=== PATIENT | female | born 1940 | race Caucasian/White ===

== ENCOUNTER 2016-11-14 04:37 | Observation (INO) | payer OTHER ==
[~2016-11-14] VITALS: Ht 165.1 cm; Wt 81.4 kg
[~2016-11-14 04:37] MED LIST: ASPIR 8181 M1 PO; ASPIR-LOW81 MG PO; AZATHIOPRINE50 MG PO; CAL-CITRATE PL1 EACH PO; CALTRATE 600 +1 EAC1 PO; ELIQUIS5 MG PO; LEVOTHYROXINE75 MCG PO; LIPITOR80 MG PO; METAMUCIL POWD798 GM PO; METOPROLOL TART25 MG PO; MOVE IT ALONG100 MG PO; PRAVASTATIN SOD40 MG PO; PROLIA60 MG/1 ML SC; PULMICORT FLE180 MCG IH; VENTOLIN HFA18 GM IH
[2016-11-14 04:59] LABS: HEMATOCRIT 40.5 % (36.0-46.0); MCH 31.9 PG (29.0-34.0); MCHC 33.6 G/DL (30.0-36.0); MCV 94.8 FL (83-99); MEAN PLAT.VOLUME 10.6 uM^3 (9.5-12.4); PLATELET COUNT 220 K/uL (156-360); RBC DIS.WIDTH-CV 13.7 % (11.8-14.6); RBC DIS.WIDTH-SD 45.2 % (39-53); RED BLOOD COUNT 4.27 M/uL (3.80-5.20); WHITE BLOOD COUNT 6.6 K/uL (4.1-10.2)
[2016-11-14 05:06] LABS: CHLORIDE 102 mEq/L (99-109); POTASSIUM 4.5 mEq/L (3.7-5.4); SODIUM 138 mEq/L (136-147)
[2016-11-14 05:08] LABS: GLUCOSE 120 mg/dL (70-99)
[2016-11-14 05:09] LABS: ANION GAP 8 MEQ/L (2-14)
[2016-11-14 05:12] LABS: GFR ESTIMATE (CALCULATED) 57 mL/min/
[2016-11-14 05:13] LABS: UREA NITROGEN (BUN) 18 mg/dL (9-23)
[2016-11-14 05:15] LABS: TOTAL BILIRUBIN 0.3 mg/dL (0.0-1.0)
[2016-11-14 05:16] LABS: ALKALINE PHOSPHATASE 66 IU/L (3-129)
[2016-11-14 05:18] LABS: TROP-I INTERPRETATION NEGATIVE; TROPONIN-I 0.01 ng/mL (0.0-0.30)
[2016-11-14 05:19] LABS: DIRECT BILIRUBIN 0.1 mg/dL (0.0-0.3)
[2016-11-14 05:20] LABS: LIPASE 56 U/L (1.0-51.0)
[2016-11-14 05:31] LABS: PROTHROMBIN TIME 10.4 (9.2-11.2); PTT 30.1 (25-32)
[2016-11-14] MEDS ORDERED: CARTIA XT120 MG PO (06:36)
[2016-11-14] MEDS ORDERED: CARDIZEM CD,CA120 MG PO (06:37)
[2016-11-14 08:25] LABS: D-DIMER ELISA 0.85 mg/L FEU (< 0.57)
[2016-11-14 09:07] VITALS: BP 175/75
[2016-11-14 09:07] LABS: ADD MIUA? YES; BILIRUBIN NEGATIVE; BLOOD SMALL; COLOR STRAW ((YELLOW)); GLUCOSE (STRIP) NEGATIVE; KETONES NEGATIVE; LEUKOCYTES NEGATIVE; NITRITE NEGATIVE; PROTEIN (STRIP) NEGATIVE; UROBILINOGEN 0.2 MG/DL (0.2-1.0)
[2016-11-14 09:15] LABS: BACTERIA NONE SEEN /HPF; EPITHELIAL CELLS RARE /HPF; HYALINE CASTS 0-5 /LPF; MUCUS TRACE /LPF; RED BLOOD CELLS 0-5 /HPF (0-5); UCUL ADDED? NO; WHITE BLOOD CELLS 0-5 /HPF (0-5)
[2016-11-14 11:24] VITALS: BP 123/58
[2016-11-14 11:50] LABS: IRON 66 MCG/DL (35-150); SAMPLE HEMOLYSIS CHECK 0; SAMPLE ICTERIC CHECK 0; SAMPLE LIPEMIA CHECK 0
[2016-11-14 12:31] LABS: TROP-I INTERPRETATION NEGATIVE; TROPONIN-I < 0.01 ng/mL (0.0-0.30)
[2016-11-14 17:59] LABS: TROP-I INTERPRETATION NEGATIVE; TROPONIN-I 0.02 ng/mL (0.0-0.30)
[2016-11-14] MEDS ORDERED: ZOFRAN ODT4 MG PO (18:27)
== END 2016-11-14 20:06 | disposition home or self-care (01) ==
LOC: EME → EDBD 04:37 → EDOF 07:30 → 5WEST 08:57
PROVIDERS: Internal Medicine
DX: R10.13 Epigastric pain (principal); R11.0 Nausea; R07.9 Chest pain, unspecified; J45.909 Unspecified asthma, uncomplicated; E78.00 Pure hypercholesterolemia, unspecified; E78.5 Hyperlipidemia, unspecified; I10 Essential (primary) hypertension; Z96.651 Presence of right artificial knee joint; Z95.2 Presence of prosthetic heart valve; E03.9 Hypothyroidism, unspecified; M81.0 Age-related osteoporosis without current pathological fracture; Z86.73 Personal history of transient ischemic attack (TIA), and cerebral infarction without residual deficits
CPT/HCPCS: 71020; 71275; 76705; 80048; 80076; 81003; 83540; 83690; 84466; 84484; 85027; 85379; 85610; 85730; 93005; 94640; 99202; 99281; 99285; G0378; J2270; J7500

== ENCOUNTER 2016-12-14 11:17 | Day surgery (SDC) | payer OTHER ==
[~2016-12-14] VITALS: Ht 165.1 cm; Wt 79.0 kg
[~2016-12-14 11:17] MED LIST changes: +AZO BLADDER CO300 MG PO; +CARDIZEM CD,CA120 MG PO; +CARTIA XT120 MG PO; +ZOFRAN ODT4 MG PO
[2016-12-14 11:43] VITALS: BP 132/63
[2016-12-14] MEDS ORDERED: NORCO 5/3251 TABLET PO (14:48)
[2016-12-14 16:42] VITALS: BP 194/74
[2016-12-14 17:55] VITALS: BP 113/53
== END 2016-12-14 18:25 | disposition home or self-care (01) ==
LOC: SDC 11:17
DX: K80.10 Calculus of gallbladder with chronic cholecystitis without obstruction (principal); R10.11 Right upper quadrant pain; K75.4 Autoimmune hepatitis; Z95.2 Presence of prosthetic heart valve; Z96.659 Presence of unspecified artificial knee joint; Z80.0 Family history of malignant neoplasm of digestive organs
CPT/HCPCS: 88304; 88307; 88313; 94640; J0131; J0690; J1100; J2405; J2710; J3010

== ENCOUNTER 2018-04-21 07:41 | Emergency (ER) | payer OTHER ==
[~2018-04-21] VITALS: Ht 160 cm; Wt 70.0 kg
[~2018-04-21 07:41] MED LIST changes: +NORCO 5/3251 TABLET PO
[2018-04-21 09:15] LABS: BASOPHIL (%) 0.4 % (0-1); EOSINOPHIL (%) 0.1 % (0-5); IMMATURE GRANULOCYTE (%) 0.7 % (0.0-0.7); LYMPHOCYTE (%) 7.7 % (15-42); LYMPHOCYTE COUNT 0.6 K/uL (1.0-2.8); MCH 32.7 PG (29.0-34.0); MCHC 34.3 G/DL (30.0-36.0); MCV 95.4 FL (83-99); MONOCYTE (%) 11.5 % (3-12); MONOCYTE COUNT 0.9 K/uL (0-0.8); NEUTROPHIL (%) 79.6 % (45-76); NEUTROPHIL COUNT 6.1 K/uL (1.8-6.4); PLATELET COUNT 211 K/uL (156-360); RBC DIS.WIDTH-CV 14.3 % (11.8-14.6); RBC DIS.WIDTH-SD 50.3 % (39-53); RED BLOOD COUNT 3.67 M/uL (3.80-5.20); WHITE BLOOD COUNT 7.7 K/uL (4.1-10.2)
[2018-04-21 09:21] LABS: INTER. NORMALIZED RATIO 1.1
[2018-04-21 09:23] LABS: ALBUMIN 4.2 g/dL (3.2-4.8); CHLORIDE 97 mEq/L (99-109); POTASSIUM 4.2 mEq/L (3.7-5.4); SODIUM 130 mEq/L (136-147)
[2018-04-21 09:24] LABS: PTT 38.9 SEC (25-37)
[2018-04-21 09:26] LABS: GLUCOSE 125 mg/dL (70-99); TOTAL PROTEIN 7.4 g/dL (6.4-8.3)
[2018-04-21 09:28] LABS: TOTAL BILIRUBIN 0.5 mg/dL (0.0-1.0)
[2018-04-21 09:29] LABS: ALKALINE PHOSPHATASE 336 IU/L (3-129); CREATININE 0.9 mg/dL (0.6-1.3); GFR ESTIMATE (CALCULATED) > 59 mL/min/
[2018-04-21 09:30] LABS: UREA NITROGEN (BUN) 13 mg/dL (9-23)
[2018-04-21 09:31] LABS: AST (GOT) 60 IU/L (2-34)
[2018-04-21 09:32] LABS: ALT (GPT) 52 IU/L (3-49)
[2018-04-21 11:25] LABS: APPEARANCE CLEAR ((CLEAR)); BILIRUBIN NEGATIVE; BLOOD SMALL; COLOR YELLOW ((YELLOW)); GLUCOSE (STRIP) NEGATIVE; KETONES 5; LEUKOCYTES SMALL; NITRITE NEGATIVE; PROTEIN (STRIP) NEGATIVE; UROBILINOGEN 0.2 MG/DL (0.2-1.0)
[2018-04-21 11:52] LABS: BACTERIA RARE /HPF; EPITHELIAL CELLS RARE /HPF; MUCUS TRACE /LPF; RED BLOOD CELLS 0-5 /HPF (0-5); WHITE BLOOD CELLS 15-20 /HPF (0-5)
[2018-04-21] MEDS ORDERED: ZOFRAN ODT4 MG PO (13:31)
[2018-04-21 15:00] VITALS: BP 136/66
== END 2018-04-21 15:01 | disposition home or self-care (01) ==
LOC: EME 07:41
PROVIDERS: Nurse Practitioner Family
DX: N39.0 Urinary tract infection, site not specified (principal); E87.1 Hypo-osmolality and hyponatremia; Z86.73 Personal history of transient ischemic attack (TIA), and cerebral infarction without residual deficits; Z87.440 Personal history of urinary (tract) infections; K75.4 Autoimmune hepatitis; Z79.82 Long term (current) use of aspirin; Z79.01 Long term (current) use of anticoagulants; I10 Essential (primary) hypertension; E78.5 Hyperlipidemia, unspecified; J45.909 Unspecified asthma, uncomplicated; Z95.2 Presence of prosthetic heart valve; Z90.49 Acquired absence of other specified parts of digestive tract; Z96.651 Presence of right artificial knee joint; Z88.5 Allergy status to narcotic agent
CPT/HCPCS: 71046; 74177; 80053; 81003; 85025; 85610; 85730; 93005; 99281; 99285; J0696; J7030